=== PATIENT | female | born 1970 | race American Indian/Alaskan Native ===

== ENCOUNTER 2019-03-05 23:58 | Emergency (ER) | payer MEDICAID ==
[2019-03-06] MEDS ORDERED: HYDR-4383 PO (00:59)
[2019-03-06] MEDS ORDERED: HYDROcodone/acetaminophen 10/325mg tab PO ONE (01:00)
[2019-03-06 01:38] VITALS: BP 113/51
== END 2019-03-06 01:39 | disposition home or self-care (01) ==
LOC: ER 23:59
DX: S32.502A Unspecified fracture of left pubis, initial encounter for closed fracture (principal); S70.12XA Contusion of left thigh, initial encounter; S70.11XA Contusion of right thigh, initial encounter; M25.551 Pain in right hip; M25.552 Pain in left hip; F15.90 Other stimulant use, unspecified, uncomplicated; Z90.49 Acquired absence of other specified parts of digestive tract; Z98.890 Other specified postprocedural states; Z88.0 Allergy status to penicillin; Z79.899 Other long term (current) drug therapy; X58.XXXA Exposure to other specified factors, initial encounter; Y93.89 Activity, other specified; Y92.89 Other specified places as the place of occurrence of the external cause; Y99.8 Other external cause status
CPT/HCPCS: 72170; 99283

== ENCOUNTER 2024-09-27 20:01 | Emergency (ER) | payer MEDICAID ==
[~2024-09-27] VITALS: Ht 167.6 cm; Wt 90.8 kg
[~2024-09-27 20:01] MED LIST: HYDR-4383 PO
[2024-09-27 20:52] LABS: UA COLLECTION TYPE CLN CATCH MIDSTREAM
[2024-09-27 20:54] LABS: URINE HCG NEGATIVE (NEG)
[2024-09-27] MEDS ORDERED: POLOS EACHEYE (21:15)
[2024-09-27] MEDS ORDERED: SULF1TAB45 PO (21:15)
[2024-09-27] MEDS ORDERED: sulfamethoxazole/trimethoprim SS (400mg/80mg) tab (single-strength) PO SCH (21:15)
[2024-09-27] MEDS ORDERED: sulfamethoxazole/trimethoprim DS (800/160mg) tablet PO SCH ×2 (21:20)
[2024-09-27 21:24] LABS: BACTERIA,URINE FEW /HPF (Neg); RBC,URINE TNTC /HPF (0-2); SQUAMOUS EPITHELIAL CELL,UR FEW /LPF (FEW)
[2024-09-27] MEDS: polymyxin B sulf/tmp ophth drops 10ml EACHEYE SCH (21:31)
[2024-09-27] MEDS: sulfamethoxazole/trimethoprim DS (800/160mg) tablet PO ONE (21:31)
[2024-09-27 21:59] VITALS: BP 134/86; PULSE 88; RESP 18; TEMP 98.2; O2SAT 97
== END 2024-09-27 21:59 | disposition home or self-care (01) ==
LOC: ER 20:01
DX: N39.0 Urinary tract infection, site not specified (principal); H10.9 Unspecified conjunctivitis; F15.90 Other stimulant use, unspecified, uncomplicated; Z88.0 Allergy status to penicillin; Z79.899 Other long term (current) drug therapy; Z90.89 Acquired absence of other organs
CPT/HCPCS: 81001; 81025; 87088; 87186; 99283

== ENCOUNTER 2025-08-23 15:27 | Emergency (ER) | payer MEDICAID ==
[~2025-08-23] VITALS: Ht 172.7 cm; Wt 100.0 kg
[2025-08-23 15:35] VITALS: O2SAT 67
[2025-08-23] MEDS ORDERED: calcium chloride 100 MG/1 ML inj IV ONE (16:00)
[2025-08-23] MEDS ORDERED: naloxone 2mg/2ml inj ONE (16:00)
[2025-08-23] MEDS ORDERED: sodium bicarbonate (8.4%) 1 mEq/ml syringe ONE (16:00)
[2025-08-23] MEDS ORDERED: dextrose 50%-water 50ml dispensing syringe IV ONE (16:00)
[2025-08-23] MEDS ORDERED: epiNEPHrine 0.1mg/ml 10ml syringe ONE (16:00)
[2025-08-23] MEDS ORDERED: amiodarone 50MG/ML inj IV ONE (16:00)
[2025-08-23] MEDS ORDERED: atropine 0.1mg/ml 10ml syringe ONE (16:00)
--- NOTE | 2025-08-23 16:42 | Physician Documentation ---
History of Present Illness ~ Chief Complaint: Code Blue Stated Complaint: CODE BLUE Time Seen by MD: 16:12 Primary Medical Doctor: [facility] History, review of systems, physical examination are limited secondary to clinical condition. This is a 54-year-old female last seen well approximately 35 minutes prior to EMS being called, was found down by family. CPR was initiated. Fire on scene continued CPR. EMS had performed CPR for approximately 20 minutes, administered for of epinephrine, and called for further guidance versus termination of resuscitation. The patient's end-tidal was in the 50s. I gave order to transport the patient to our facility. No past medical history known. Glucose on scene was 400 or so. Upon arrival in the history obtainable from the patient. CPR in progress. Medication Reconciliation Allergies: Coded Allergies: Penicillins (Verified Adverse Reaction, Intermediate, 03/06/19) Scheduled Hydrocodone/Acetaminophen ([place] 5-325 Tablet), 1 TAB PO Q12H PRN Past Medical History Past Medical History: No Pertinent History Past Surgical History: orthopedic surgeries, tonsillectomy Drug Use: methamphetamine Lives In: Home Review of Systems ROS Limited as above Physical Exam Vital Signs: Pulse Oximetry: 67, Weight: 100.000 Physical Exam GENERAL: The patient is comatose. CPR in progress. Actively being bagged. Immediately placed in bed three. CPR continued. HEENT: Atraumatic, normocephalic, pupils 6 mm and fixed and dilated, sclerae anicteric, mucus membranes moist, oropharynx is contains LMA and blood around it and in it. NECK: supple, full active range of motion, trachea midline, no thyromegaly, no lymphadenopathy, no JVD. CARDIOVASCULAR: No spontaneous cardiac activity. PULMONARY: Mechanically ventilated through LMA upon arrival. Coarse breath sounds bilaterally. Blood in the airway. Blood in the LMA. GASTROINTESTINAL: Soft, non-distended NEUROLOGIC: GCS 3T. MUSCULOSKELETAL: There is full passive range of motion of all extremities. EXTREMITIES: Called and poorly perfused, cyanosis, no clubbing, no edema, no acute deformities. IO in place in the right tibia. Skin: warm, dry, no rashes or lesions, no jaundice, no petechiae orpurpura. No ecchymosis. PSYCHIATRIC: Unable to assess Procedures Intubation Intubation Time: 1529 Intubation Method: orotracheal Endotracheal Tube Size: 7.5 ETT Confirmation: Ascultation, CO2 Detector, Direct Visualization Breath Sounds After Intubation: equal Intubation Complications: no complications Procedure Note Intubation Performed by: Fabian Hallman DO Authorized by:Fabian Hallman DO Consent: Verbal consent not obtained. The procedure was performed in an emergent situation. Required items: required blood products, implants, devices, and special equipment available Patient identity confirmed: arm band Time out: Immediately prior to procedure a "time out" was called to verify the correct patient, procedure, equipment, net application support specialist and site/side marked as required. Indications: respiratory failure and airway protection Intubation method: Video Patient status: No RSI, CPR in progress Preoxygenation: BVM via LMA Sedatives: None Paralytic: None Laryngoscope size: Mac 4 Tube size: 7.5 mm Tube type: cuffed Number of attempts: 1 Cords visualized: yes Post-procedure assessment: chest rise, BS = bilaterally none over epigastrum, +CO2 detector Breath sounds: equal and absent over the epigastrium Cuff inflated: yes ETT to lip: 23 cm Tube secured with: Tube tie Patient tolerance: Patient tolerated the procedure well with no immediate complications. Progress Results/Orders Results/Orders Vital Signs 08/23/25 15:35 Pulse Ox 67 Laboratory Tests Test 08/23/25 15:37 Glucometer 368 H Medical Decision Making Additional information obtaine: other (EMS) Findings Facility Status: [facility], [facility] process The plan was discussed with the patient, who demonstrates clear understanding of the plan and is in agreement with the plan unless otherwise noted in the chart. All questions have been answered, all concerns were addressed unless otherwise documented. I was available throughout their ED stay for frequent reassessment and q uestions. Differential Diagnoses (considered and possible or likely): [Cardiopulmonary arrest secondary to electrolyte derangement, acidosis, hypoglycemia, ACS, PE, malignant arrhythmia] ??Differential Diagnoses (considered and unlikely, not requiring evaluation currently): [Unlikely to be a stroke, no evidence of trauma] MDM Data Please see HPI for the following: Independent Historians and external Records Review. Historian: EMS Independent Historians: ?[Limited secondary to patient's clinical condition] Medication Management: Unknown Social History and determinants: Unknown Please see the body of the note for the following: Any independent interpretations of ECG, imaging studies. All vitals signs/haemodynamics, ordered tests were independently reviewed and interpreted by myself. Nursing triage complaint and vitals reviewed, additional nursing notes were reviewed as available and I agree unless otherwise noted or documented in contradiction in the chart Vital Signs: Independently reviewed Labs: Independently interpreted Imaging: Independently interpreted Old Medical Records: Independently reviewed, see HPI for relevant summary and information Pulse Oximetry: [65% on February at 15 L] interpreted as [hypoxia] by me [Accounts Receivable Administrator: [The patient came in in the asystole, eventually developed ventricular fibrillation, eventually transitioned to PE I with a wide complex bradycardia] reviewed and interpreted by me] Additionally notably showing: No spontaneous circulation Tests considered but not ordered include: [Imaging laboratory studies has been considerably, however whenever had experienced return of spontaneous circulation] Social Determinants of Health Impact: Patient was evaluated in [facility] [place] to healthcare due to below par ratio of patient to medical providers. [] Comorbid Conditions Impacting Present Evaluation and Care/Treatment: [Unknown] Management Discussions with other Healthcare Providers: [None] Treatment and Disposition Medication Management (Given or considered): []. See EMR/code sheet for details Consideration for Hospitalization/Escalation/Deescalation of Care: Not applicable ?ED Course:?[Upon arrival has a CPR was continued. Patient was intubated. Oxygenation recovered after intubation up to 100%. There was copious amounts of secretion mixed with the blood from ET tube that was suctioned repeatedly. The patient has a received multiple rounds of ACLS. She received lidocaine and amiodarone when ventricular rhythm was detected. She received several shocks, see code sheet. There was a very brief single pulse check check where patient appeared to have organized rhythm and possibly has a pulse. CPR was continued, however in the next pulse check there was no detectable pulse. Despite of Valiant effort of resuscitative team, we were not able to achieve return of spontaneous circulation. Unfortunately her end-tidal deteriorated and eventually was noted to be 11. Time of 16 10.] ?Shared decision making:?[] Code status:?FULL Please see the full Electronic Medical Record for full details of nursing documentation, medications list, other records of complete past medical history and conditions, vital signs, laboratory studies, and any radiologic study interpretations by radiologists. Portions of this note were completed using AMCADation software and as a result there may exist minor errors in spelling. I have reviewed elements of past family and social history and agree as included in note. Differential Dx:Considerations: Include Cardiopulmonary arrest, Include Cardiogenic shock, Include Cardiac tamponade, Include Dysrhythmia, Include Electrolyte Disorder, Include Heart block, Include Myocardial infaction, Include Pneumothorax (This is), Include Pulmonary embolus, Include Respiratory failure, Include Ruptured aortic aneurysm Departure Disposition: 20 Impression: Primary Impression: Cardiac arrest Referrals: NO PRIMARY CARE PROVIDER (PCP) Signature Scribe Signature: No scribe Attestation: Date: Aug 23, 2025 Time: 16:47 This note accurately reflects clinical decisions, work performed by myself, Fabian Hallman, FABIAN MORALES DO Aug 23, 2025 16:42
== END 2025-08-23 19:31 ==
LOC: ER 15:27
DX: I46.9 Cardiac arrest, cause unspecified (principal); F15.90 Other stimulant use, unspecified, uncomplicated; Z88.0 Allergy status to penicillin; Z90.89 Acquired absence of other organs; Z98.890 Other specified postprocedural states; Z79.899 Other long term (current) drug therapy
CPT/HCPCS: 31500; 82948; 92950; 99285; J0169; J0282; J0461; J2312; J3490